=== PATIENT | male | born 1940 | race Caucasian/White ===

== ENCOUNTER 2016-10-18 10:26 | Day surgery (SDC) | payer MEDICARE ==
[2016-10-15 11:38] VITALS: BMI 22.3
[~2016-10-18 10:26] MED LIST: ALPRAZolam 0.25 MG TAB PO PRN; ALPRAZolam 0.5 MG TAB PO PRN; ASPIRIN 325 MG TAB PO STA; ATORVASTATIN 80 MG TAB PO STA; NITROGLYCERIN SL TABS 0.4 MG TAB SUBLINGUAL PRN; SODIUM CHLORIDE 0.9% 1,000 ML in EMPTY BAG 1 BAG IV ONE
[2016-10-18] MEDS ORDERED: LIDOCAINE 2% INJ 20 MG/ML (20 ML MDV) ONE ×2 (11:06→13:41)
[2016-10-18 11:10] LABS: Glucose,Whole Blood 166 mg/dL (75-99)
[2016-10-18] MEDS ORDERED: fentaNYL (PF) 50 MCG/ML 2 ML AMP ONE (11:35)
[2016-10-18] MEDS ORDERED: MIDAZOLAM 2 MG/2 ML VIAL ONE (11:36)
[2016-10-18] MEDS ORDERED: fentaNYL (PF) 50 MCG/ML 2 ML AMP IV ONE (11:44)
[2016-10-18] MEDS: MIDAZOLAM 2 MG/2 ML VIAL IV ONE ×2 (11:45→12:53)
[2016-10-18] MEDS ORDERED: LIDOCAINE 2% INJ 20 MG/ML SQ ONE (11:45)
[2016-10-18 11:48] LABS: Basophils # (A) 0.1 k/uL (0-0.2); Basophils % (A) 1 %; CH 30.1; CHCM 31.6; Eosinophils # (A) 0.4 k/uL (0-0.7); Eosinophils % (A) 3 %; HCT 42.7 % (39.0-53.0); HGB 13.6 gm/dL (13.0-17.5); Luc # (Auto) 0.23; Luc % (Auto) 2; Lymphocytes # (A) 1.8 k/uL (1.0-4.8); Lymphocytes % (A) 14 %; MCH 30.5 pg (25.0-35.0); MCHC 31.8 g/dL (31.0-37.0); MCV 95.9 fL (80.0-100.0); Mean Platelet Volume 8.6; Monocytes # (A) 0.7 k/uL (0-1.0); Monocytes % (A) 6 %; Neutrophils # (A) 9.3 k/uL (1.3-7.7); Neutrophils % (A) 74 %; RBC 4.46 m/uL (4.30-5.90); RDW 15.1 % (11.5-15.5); WBC 12.5 k/uL (3.8-10.6); WBC (Perox) 12.33
[2016-10-18 12:05] LABS: Anion Gap 7 mmol/L; Blood Urea Nitrogen 18 mg/dL (9-20); Calcium 9.1 mg/dL (8.4-10.2); Carbon Dioxide 30 mmol/L (22-30); Chloride 101 mmol/L (98-107); Glucose 164 mg/dL (74-99); Non-African American GFR(MDRD) >60 (>60 ml/min/1.73 sqM); Sodium 138 mmol/L (137-145)
[2016-10-18 12:09] LABS: Potassium 5.1 mmol/L (3.5-5.1)
[2016-10-18] MEDS ORDERED: RX INFO: IV CONTRAST WAS GIVEN 1 EACH MISC MISCELLANE PRN (12:37)
--- NOTE | 2016-10-18 12:37 | P.PCN ---
Date of Procedure: 10/18/16 Preoperative Diagnosis: Positive stress test, preoperative clearance, hypertension and diabetes Postoperative Diagnosis: Significant disease involving the LAD and total occlusion of the RCA with mild to moderate disease in the circumflex Procedure(s) Performed: Left heart catheterization and aortic root injection ,no LV gram Description of Procedure: HISTORY: This is a 76-year-old gentleman with history of hypertension and diabetes who was recently referred to our office for cardiac evaluation prior to hip surgery. Patient had a nuclear stress test which showed moderate to severe fixed defect involving the anteroapical segments with fairly preserved LV function. It was felt that could be present severe ischemia though previous myocardial infarction cannot be completely excluded. Patient is advised to have a cardiac catheterization for definitive diagnosis. CONSENT:I have discussed the risks, benefits and alternative therapies for the above-mentioned procedure and for both sedation/analgesia as well as necessary blood product administration, if indicated, as they pertain to this patient. The patient has indicated understanding and acceptance of the risks and procedures discussed. Conscious sedation: Patient is given 0.5 because of Versed and 25 mg of fentanyl. Duration is half an hour PROCEDURE: Patient was brought to the lab in a fasting state. Patient was given some IV sedation. The right groin is infiltrated with lidocaine and right femoral artery was entered using Seldinger technique. A 6-Tongan catheter was left in place and selective coronary arteriography and left ventriculography was performed. Patient tolerated the procedure well. Femoral angiogram was performed and Angio-Seal was applied for hemostasis. No immediate complications were noted and patient was transferred to [facility] in a stable condition HEMODYNAMICS: The aortic pressure is 140/80. Left ankle end-diastolic pressure is 15. No gradient across the aortic valve SELECTIVE CORONARY ARTERIOGRAPHY: LEFT MAIN: Short and patent THE LEFT ANTERIOR DESCENDING CORONARY ARTERY: This is a good caliber vessel with a diffuse disease involving the midportion with a 95 % stenosis before the origin of the first diagonal branch. There is also about 70-80% lesion at the origin of the second diagonal branch. The first diagonal branch also has about 80-90% stenosis. The ostium of the second diagonal branch also has moderate disease THE LEFT CIRCUMFLEX AND IS CORONARY ARTERY: The circumflex coronary artery is a good caliber vessel and probably dominant in distribution. His diffuse ectasia with areas of about 60% stenosis especially involving the OM branch and distal segments. There doesn't seem to be critical focal lesion. THE RIGHT CORONARY ARTERY: Probably nondominant vessel seemed to be totally occluded in the midportion. The vessel is seen only with subselective injection. There are collaterals from the left system to the distal RCA. LEFT VENTRICULOGRAPHY: Not performed. AORTIC ROOT INJECTION: This was performedin 30 left obliquus ejection. This revealed trileaflet aortic valve. There is an eccentric origin of the right coronary artery which seemed to be totally occluded in the midportion FINAL IMPRESSION: #1 critical lesion involving the LAD in the proximal portion followed by other significant lesion in the midportion. #2 significant disease involving the diagonal branches #3 moderate disease involving the circumflex #4 total occlusion of the RCA. PLAN: Possible stent placement of the LAD. Dr. SHANNON Nieves is going to evaluate the patient and review the films. PROGNOSIS: Guarded
[2016-10-18] MEDS ORDERED: BIVALIRUDIN BOLUS 250 MG/50 ML IV ONE (13:15)
[2016-10-18] MEDS ORDERED: HYDROmorphone 2 MG/ML 1 ML SYRINGE ONE (13:23)
[2016-10-18] MEDS ORDERED: HYDROmorphone 2 MG/ML 1 ML SYRINGE IVP ONE (13:24)
[2016-10-18] MEDS ORDERED: NITROGLYCERIN 1000MCG/10ML SYRINGE INTRACORON ONE ×2 (13:28→13:56)
[2016-10-18] MEDS ORDERED: CLOPIDOGREL 75 MG TAB ONE ×2 (13:53→13:56)
[2016-10-18] MEDS ORDERED: CLOPIDOGREL 75 MG TAB PO ONE (14:03)
[2016-10-18] MEDS ORDERED: SODIUM CHLORIDE 0.9% 1,000 ML IV ONE (14:05)
[2016-10-18] MEDS ORDERED: IOHEXOL 350 MG/ML 100 ML BOTTLE INJ ONE (14:06)
[2016-10-18] MEDS ORDERED: BIVALIRUDIN 250 MG in SODIUM CHLORIDE 0.9% 50 ML IV ONE (14:17)
[2016-10-18] MEDS: SODIUM CHLORIDE 0.9% 1,000 ML IV SCH ×2 (15:38)
[2016-10-18 15:47] VITALS: RESP 18
[2016-10-18] MEDS ORDERED: HYDROcodone/APAP 5-325MG 1 EACH TAB PO PRN (15:55)
[2016-10-18] MEDS ORDERED: amLODIPine 5 MG TAB PO STA (16:08)
[2016-10-18] MEDS: NICOTINE 21MG/24HR PATCH TRANSDERM SCH (16:17)
[2016-10-18] MEDS: CARVEDILOL 3.125 MG TAB PO SCH (16:18)
[2016-10-18 17:02] LABS: Glucose,Whole Blood 104 mg/dL (75-99)
[2016-10-18] MEDS ORDERED: ATROPINE SULFATE 0.1 MG/ML 10ML SYRINGE ONE (18:49)
[2016-10-18 20:42] LABS: Glucose,Whole Blood 173 mg/dL (75-99)
[2016-10-18] MEDS ORDERED: LISINOPRIL 2.5 MG TAB PO SCH (21:00)
[2016-10-19] MEDS: SODIUM CHLORIDE 0.9% 1,000 ML IV SCH ×2 (01:03→06:40)
[2016-10-19 06:18] LABS: Glucose,Whole Blood 165 mg/dL (75-99)
[2016-10-19] MEDS: CARVEDILOL 3.125 MG TAB PO SCH (06:40)
[2016-10-19 07:22] LABS: Basophils # (A) 0.1 k/uL (0-0.2); Basophils % (A) 0 %; CH 30.3; CHCM 31.6; Eosinophils # (A) 0.1 k/uL (0-0.7); Eosinophils % (A) 1 %; HCT 38.2 % (39.0-53.0); HDW 2.26; HGB 12.2 gm/dL (13.0-17.5); Luc # (Auto) 0.24; Luc % (Auto) 2; Lymphocytes # (A) 1.6 k/uL (1.0-4.8); Lymphocytes % (A) 12 %; MCH 30.7 pg (25.0-35.0); MCHC 31.8 g/dL (31.0-37.0); MCV 96.4 fL (80.0-100.0); Mean Platelet Volume 8.3; Monocytes # (A) 0.8 k/uL (0-1.0); Monocytes % (A) 6 %; Neutrophils # (A) 11.1 k/uL (1.3-7.7); Neutrophils % (A) 80 %; RBC 3.97 m/uL (4.30-5.90); RDW 14.7 % (11.5-15.5); WBC 13.9 k/uL (3.8-10.6); WBC (Perox) 14.86
[2016-10-19 07:49] LABS: Anion Gap 9 mmol/L; Blood Urea Nitrogen 15 mg/dL (9-20); Calcium 8.6 mg/dL (8.4-10.2); Carbon Dioxide 25 mmol/L (22-30); Chloride 101 mmol/L (98-107); Glucose 156 mg/dL (74-99); Non-African American GFR(MDRD) >60 (>60 ml/min/1.73 sqM); Potassium 4.4 mmol/L (3.5-5.1); Sodium 135 mmol/L (137-145)
--- NOTE | 2016-10-19 08:14 | PTCA ---
DATE OF SERVICE: 10/18/2016 PROCEDURE: PTCA and stenting of proximal and mid complex calcified left anterior descending coronary artery. PERFORMED BY: Dr. Nae Nieves. Conscious sedation time 45 minutes. CLINICAL INFORMATION: Mr. Jeremy Xie is a 76-year-old gentleman with a hip surgery going for another redo hip surgery was seen and evaluated by Dr. Barcenas who underwent a cardiac cath which revealed that there was a proximal LAD lesion of about 80% to 90% and mid LAD of 70% heavily calcified tortuous after a very acute bend in the LAD. Additionally, circumflex had noncritical disease. The RCA was probably totally occluded by way of subselective injection. He has diabetes, hypertension, hyperlipidemia, and degenerative joint disease. I talked to the patient's [id number] prior to the procedure and the patient at length explained to him the high risk nature of surgery given the tortuosity, calcification and eccentricity of the lesion and there were 2 side branches with each lesion, which were threatened. The patient and his [id number] wished to proceed with the procedure and I performed it right after the coronary angiography. PROCEDURE NOTE: The existing 6 Serbian introducer in the right femoral artery was used to perform the procedure. I used a standard left Letty guide catheter to cannulate the left coronary artery and a BMW wire to cross the lesion. Wire was kept distally. I predilated the proximal lesion with a 3.0 caliber, 12 mm long NC Euphora balloon and I could not advance this to the distal lesion. I switched over to a 2.5 caliber, 8 mm NC Trek balloon and with this I was able to dilate the mid lesion. I then advanced and positioned a 3.0 caliber, 8 mm long stent in the proximal lesion and deployed this at 15 atmospheres with excellent angiographic result. I had a lot of difficulty trying to advance this stent to the distal lesion. At this point, I took another adi wire and advanced a whisper wire along the existing BMW wire. With this combination I tried to advance initially over the whisper wire without success then using the whisper wire as a adi wire, I advanced it to a 3.0 caliber, 8 mm long Xience stent over the BMW wire and I was able to advance it and position it across the distal lesion. This was deployed at 14 atmospheres. Patient did not have chest pain, but had EKG changes. Excellent angiographic result of both lesions was achieved. Distally the flow was very good. The sheath was sutured. Patient received 600 mg of Plavix. He also received Angiomax bolus and infusion as per protocol. Results were discussed with the patient, his son and his [id number]. Excellent angiographic result was achieved. Two drug-eluting stents were deployed. I expect the patient should do well and hopefully be discharged in next 24 to 48 hours.
[2016-10-19] MEDS ORDERED: ATORVASTATIN 80 MG TAB PO SCH (09:00)
[2016-10-19] MEDS ORDERED: CLOPIDOGREL 75 MG TAB PO SCH (09:00)
[2016-10-19] MEDS ORDERED: ASPIRIN 81 MG CHEW PO SCH (09:00)
[2016-10-19] MEDS: NICOTINE 21MG/24HR PATCH TRANSDERM SCH (09:29)
[2016-10-19 11:17] LABS: Glucose,Whole Blood 210 mg/dL (75-99)
[2016-10-19 11:50] VITALS: BP 162/86; PULSE 70; TEMP 97.5
--- NOTE | 2016-10-19 14:00 | P.PN ---
Subjective Principal diagnosis: LAD stent Discharge note This is a 76-year-old gentleman with known history of hypertension, diabetes, hyperlipidemia, who went to see Dr. Barcenas in the office for cardiac evaluation prior to hip surgery. Patient underwent a stress test in the office suggestive of reversible ischemia and for this reason patient was recommended to be admitted to the hospital to undergo cardiac catheterization. Cardiac catheterization revealed a critical lesion involving the LAD in the proximal portion, followed by other significant lesion in the midportion, significant disease in the diagonal branches, moderate disease in the circumflex , total occlusion of RCA. Subsequent to that patient underwent angioplasty with stenting of the LAD by Dr. Steven Nieves. EKG this morning showed normal sinus rhythm with no changes post-PCI. Hemodynamically stable. Objective - Vital Signs Vital signs: Vital Signs Temp 97.5 F L 10/19/16 11:49 Pulse 70 10/19/16 12:00 Resp 18 10/19/16 12:00 BP 162/86 10/19/16 11:49 Pulse Ox 93 L 10/19/16 11:49 Intake & Output 10/18/16 10/19/16 10/19/16 18:59 06:59 18:59 Intake Total 232.71 187 480 Output Total 700 300 250 Balance -467.29 -113 230 Weight 66.678 kg 66 kg Intake: IV 232.71 187 Sodium Chloride 0.9% 1, 187 000 ml @ 75 mls/hr IV . [id number] [facility] Rx#:[id number] Oral 480 Output: Urine 700 300 250 Other: Voiding Method Urinal Urinal Urinal # Voids 1 - Exam PHYSICAL EXAMINATION: HEENT: Head is atraumatic, normocephalic. Pupils equal, round. Neck is supple. There is no elevated jugular venous pressure. HEART EXAMINATION: Heart S1, S2 normal. No murmur or gallop heard. CHEST EXAMINATION: Lungs are clear to auscultation and precussion. No chest wall tenderness is noted on palpation or with deep breathing. ABDOMEN: Soft, nontender. Bowel sounds are heard. No organomegaly noted. Right groin soft, no evidence of any hematoma. EXTREMITIES: 2+ peripheral pulses with no evidence of peripheral edema and no calf tenderness noted. NEUROLOGIC patient is awake, alert and oriented -3. . - Labs CBC & Chem 7: 10/19/16 06:48 10/19/16 06:48 Labs: Abnormal Lab Results - Last 24 Hours (Table) 10/18/16 10/18/16 10/19/16 Range/Units 16:46 20:40 06:17 WBC (3.8-10.6) k/uL RBC (4.30-5.90) m/uL Hgb (13.0-17.5) gm/dL Hct (39.0-53.0) % Neutrophils # (1.3-7.7) k/uL Sodium (137-145) mmol/L Glucose (74-99) mg/dL POC Glucose (mg/dL) 104 H 173 H 165 H (75-99) mg/dL 10/19/16 10/19/16 10/19/16 Range/Units 06:48 06:48 11:15 WBC 13.9 H (3.8-10.6) k/uL RBC 3.97 L (4.30-5.90) m/uL Hgb 12.2 L (13.0-17.5) gm/dL Hct 38.2 L (39.0-53.0) % Neutrophils # 11.1 H (1.3-7.7) k/uL Sodium 135 L (137-145) mmol/L Glucose 156 H (74-99) mg/dL POC Glucose (mg/dL) 210 H (75-99) mg/dL Assessment and Plan (1) Presence of stent in LAD coronary artery Status: Acute (2) HTN (hypertension) Status: Acute (3) Hyperlipemia Status: Acute (4) Diabetes Status: Acute Plan: may be able to be discharged home today. We'll make him a follow-up appointment to see Dr. Barcenas in the office in one week. He will be discharged home on aspirin 81 mg daily, Lipitor 80 mg daily, Coreg 3.125 mg twice a day, Plavix 75 mg daily, lisinopril 7.5 mg at at bedtime, nicotine patch daily, sublingual nitroglycerin as needed for chest pain, metformin will be resumed in 48 hours. Patient does need to go under surgery for his right hip , he has been advised if possible to wait 6-12 months, however if absolutely necessary can be done as early as [address] Barcenas will discuss this further with the patient and his follow-up appointment in the office. DNP note has been reviewed, I agree with a documented findings and plan of care. Patient was seen and examined.
== END 2016-10-19 14:02 | disposition home or self-care (01) ==
LOC: CATHCVL 10:26 → 6SEL 14:02 → CATHCVL 10-19 14:02
PROVIDERS: ATTEND Internal Medicine Cardiovascular Disease
DX: I25.10 Atherosclerotic heart disease of native coronary artery without angina pectoris (principal); I25.82 Chronic total occlusion of coronary artery; R94.39 Abnormal result of other cardiovascular function study; R94.31 Abnormal electrocardiogram [ECG] [EKG]; I10 Essential (primary) hypertension; E11.9 Type 2 diabetes mellitus without complications; E78.5 Hyperlipidemia, unspecified; M19.90 Unspecified osteoarthritis, unspecified site; F17.200 Nicotine dependence, unspecified, uncomplicated; Z99.3 Dependence on wheelchair; Z79.84 Long term (current) use of oral hypoglycemic drugs; Z79.82 Long term (current) use of aspirin; Z79.899 Other long term (current) drug therapy
CPT/HCPCS: 93458; 80048 ×2; 85025 ×2; 99152 ×2; 99153 ×3; C9600; C1769 ×4; C1887; C1725 ×2; C1894; C1874; S4990 ×2; J2001; J2250; J1170; Q9967; J3010; J0583